=== PATIENT | female | born 1985 | race Caucasian/White ===

== ENCOUNTER 2018-03-01 08:01 | Emergency (ER) | payer SELFPAY ==
[~2018-03-01] VITALS: Ht 162.6 cm; Wt 70.0 kg
[2018-03-01 08:06] VITALS: BP 110/70
[2018-03-01] MEDS ORDERED: METF-816 PO (08:09)
== END 2018-03-01 08:19 | disposition left against medical advice (07) ==
LOC: ER 08:09
DX: R46.89 Other symptoms and signs involving appearance and behavior (principal); Z53.21 Procedure and treatment not carried out due to patient leaving prior to being seen by health care provider